=== PATIENT | male | born 1955 | race Caucasian/White ===

== ENCOUNTER 2017-01-14 07:35 | Day surgery (SDC) | payer BC ==
--- NOTE | ~2017-01-14 | EGD ---
EGD REPORT [facility] [address] [place] [place] [address] NAME: KARINA COLEY : [birth year] STATUS : REG [facility] [place] PAT#: [id number] AGE: 61 ADM/REG DATE : 01/14/17 MR#: [id number] REPORT SERV DATE: 01/14/17 DICTATED BY: SUSI FUNES DATE: 01/14/17 REPORT STATUS : Draft TRANSCRIBED BY: [facility] DATE: 01/14/17 Endoscopy Center Patient Name: Karina Coley Date of : 1955 Attending MD: SUSI FUNES MD Procedure Date No Time: 01/14/2017 Procedure: Colonoscopy Indications: Rectal bleeding, Iron deficiency anemia, FH of Colonic Polyps - 1st degree relative Referring MD: IMAN CENTENO Medicines: as per anesthesia Complications: No immediate complications. Procedure: Pre-Anesthesia Assessment: - ASA Grade Assessment: II - A patient with mild systemic disease. After I obtained informed consent, the scope was passed under direct vision. Throughout the procedure, the patient's blood pressure, pulse, and oxygen saturations were monitored continuously. The PCF [id number] was introduced through the anus and advanced to the cecum, identified by appendiceal orifice and ileocecal valve. The colonoscopy was performed without difficulty. The patient tolerated the procedure well. The quality of the bowel preparation was adequate to identify polyps. Findings: The perianal and digital rectal examinations were normal. A sessile polyp was found in the sigmoid colon. The polyp was 3 mm in size. The polyp was removed with a cold biopsy forceps. Resection and retrieval were complete. A sessile polyp was found in the rectum. The polyp was 3 mm in size. The polyp was removed with a cold biopsy forceps. Resection and retrieval were complete. Internal hemorrhoids were found during endoscopy and were moderate. Impression: - One 3 mm polyp in the sigmoid colon. Resected and retrieved. - One 3 mm polyp in the rectum. Resected and retrieved. - Internal hemorrhoids. Recommendation: - Await pathology results. - Repeat colonoscopy for surveillance based on pathology results. Procedure Code(s): --- Professional --- EGD REPORT [facility] [address] [place]. [address] NAME: KARINA COLEY : [birth year] STATUS : REG [facility] [place] PAT#: [id number] AGE: 61 ADM/REG DATE : 01/14/17 MR#: [id number] REPORT SERV DATE: 01/14/17 DICTATED BY: SUSI FUNES. DATE: 01/14/17 REPORT STATUS : Draft TRANSCRIBED BY: Sviral DATE: 01/14/17 11284, Colonoscopy, flexible, proximal to splenic flexure; with biopsy, single or multiple Diagnosis Code(s): --- Professional --- K62.1, Rectal polyp D12.5, Benign neoplasm of sigmoid colon K64.8, Other hemorrhoids K62.5, Hemorrhage of anus and rectum D50.9, Iron deficiency anemia, unspecified Z83.71, Family history of colonic polyps CPT copyright 2013 [employer]. All rights reserved. The codes documented in this report are preliminary and upon writer technical publications review may be revised to meet current compliance requirements. SUSI FUNES MD 01/14/2017 9:38 AM This report has been signed electronically. Number of Addenda: 0 Note Initiated On: 01/14/2017 9:14 AM Scope Withdrawal Time 0 hours 10 minutes 4 seconds [address] [place] [id number]
--- NOTE | ~2017-01-14 | EGD ---
EGD REPORT [facility] [address] [place]. [place] [address] NAME: KARINA COLEY : [birth year] STATUS : REG [facility] [place] PAT#: [id number] AGE: 61 ADM/REG DATE : 01/14/17 MR#: [id number] REPORT SERV DATE: 01/14/17 DICTATED BY: SUSI FUNES DATE: 01/14/17 REPORT STATUS : Draft [facility]ANSCRIBED BY: [facility] DATE: 01/14/17 Endoscopy Center Patient Name: Karina Coley Date of : 1955 Attending MD: SUSI FUNES MD Procedure Date No Time: 01/14/2017 Procedure: Upper GI endoscopy Indications: Iron deficiency anemia, Heartburn, Suspected esophageal reflux Referring MD: IMAN CENTENO Medicines: as per anesthesia Complications: No immediate complications. Procedure: Pre-Anesthesia Assessment: - ASA Grade Assessment: II - A patient with mild systemic disease. After obtaining informed consent, the endoscope was passed under direct vision. Throughout the procedure, the patient's blood pressure, pulse, and oxygen saturations were monitored continuously. The GIF H190 [id number] was introduced through the mouth, and advanced to the third part of duodenum. The upper GI endoscopy was accomplished without difficulty. The patient tolerated the procedure well. Findings: The examined esophagus was normal. A few sessile polyps were found in the gastric body. Biopsies were taken with a cold forceps for histology. The cardia and gastric fundus were normal on retroflexion. The examined duodenum was normal. Biopsies were taken with a cold forceps for histology. Impression: - Normal esophagus. - A few gastric polyps. Biopsied. - Normal examined duodenum. Biopsied. Recommendation: - Await pathology results. Procedure Code(s): --- Professional --- 61843, Esophagogastroduodenoscopy, flexible, transoral; with biopsy, single or multiple Diagnosis Code(s): --- Professional --- K31.7, Polyp of stomach and duodenum D50.9, Iron deficiency anemia, unspecified EGD REPORT [facility] [address] [facility] [place]. [address] NAME: KARINA COLEY : [birth year] STATUS : REG [facility] [place] PAT#: [id number] AGE: 61 ADM/REG DATE : 01/14/17 MR#: [id number] REPORT SERV DATE: 01/14/17 DICTATED BY: SUSI FUNES. DATE: 01/14/17 REPORT STATUS : Draft TRANSCRIBED BY: [employer] DATE: 01/14/17 R12, Heartburn CPT copyright 2013 [employer]. All rights reserved. The codes documented in this report are preliminary and upon physical geographer review may be revised to meet current compliance requirements. SUSI FUNES MD 01/14/2017 9:16 AM This report has been signed electronically. Number of Addenda: 0 Note Initiated On: 01/14/2017 8:58 AM Scope Withdrawal Time 0 hours 0 minutes 0 seconds [address] [facility] [place] [address]
[~2017-01-14 07:35] MED LIST: ADALAT CC30 MG PO; ADVAIR115P INH; ADVAIR250 INH; ALBUTEROL0.083 % INH; ASAB PO; AVAP150 PO; CORICIDI2 PO; DHE1 PO; EZFE 200200 MG PO; FISH-EPA1000 MG PO; FLAXSEED OIL1000 MG PO; GLUCCHONDR PO; GLUCPH PO; HALF81 PO; HYDROCHLOROT12.5 MG PO; LIPITOR10 PO; MICARDIS HC1 PO; MULTIPLE VIT PO; NORV25 PO; OSTEO BI-FLX PO; PROAIR HFA INH; SAW PALMETT2 PO; SINGULAIR1 PO; SYMBICORT 160/41 INH INH; VITE1000 PO; ZANTAC150 MG PO; ZEGERID1 CA1 PO; ZYRTEC ALLGY10 MG PO
== END 2017-01-14 23:59 | disposition home or self-care (01) ==
LOC: DMU 07:35
PROVIDERS: Internal Medicine Gastroenterology
PROC: 0DB98ZX Excision of Duodenum, Via Natural or Artificial Opening Endoscopic, Diagnostic (ICD-10-PCS; 2017-01-14)
PROC: 0DB68ZX Excision of Stomach, Via Natural or Artificial Opening Endoscopic, Diagnostic (ICD-10-PCS; 2017-01-14)
PROC: 0DBN8ZX Excision of Sigmoid Colon, Via Natural or Artificial Opening Endoscopic, Diagnostic (ICD-10-PCS; principal; 2017-01-14 09:00)
PROC: 0DBP8ZX Excision of Rectum, Via Natural or Artificial Opening Endoscopic, Diagnostic (ICD-10-PCS; 2017-01-14 09:00)
DX: K63.5 Polyp of colon (principal); K62.1 Rectal polyp; K64.8 Other hemorrhoids; K31.7 Polyp of stomach and duodenum; D50.9 Iron deficiency anemia, unspecified; I10 Essential (primary) hypertension; E78.5 Hyperlipidemia, unspecified; J45.909 Unspecified asthma, uncomplicated; K21.9 Gastro-esophageal reflux disease without esophagitis; E11.9 Type 2 diabetes mellitus without complications; E78.00 Pure hypercholesterolemia, unspecified; M19.90 Unspecified osteoarthritis, unspecified site; Z83.71 Family history of colonic polyps; Z79.82 Long term (current) use of aspirin; Z79.899 Other long term (current) drug therapy; Z90.89 Acquired absence of other organs; Z87.442 Personal history of urinary calculi; Z98.890 Other specified postprocedural states
CPT/HCPCS: 82962; 88305